=== PATIENT | female | born 1975 | race Caucasian/White ===

== ENCOUNTER → 2019-02-13 11:29 | Outpatient (CLI) | payer OTHER, SELFPAY ==
--- NOTE | 2019-02-13 | DI.MG.S_ITS ---
BILATERAL DIGITAL SCREENING MAMMOGRAM 3D/2D WITH CAD: 02/13/2019 CLINICAL: Routine screening. Family history of breast cancer. Baseline exam. No prior exams were available for comparison. The tissue of both breasts is heterogeneously dense. This may lower the sensitivity of mammography. Current study was also evaluated with a Computer Aided Detection (CAD) system. There is an oval equal density focal asymmetry with an indistinct and circumscribed margin in the right breast at 7 o'clock middle depth. There also is an oval equal density mass with an indistinct and circumscribed margin in the right breast at 11 o'clock posterior depth. No other significant masses, calcifications, or other findings are seen in either breast. IMPRESSION: INCOMPLETE: NEEDS ADDITIONAL IMAGING EVALUATION The oval equal density focal asymmetry in the right breast at 7 o'clock middle depth is indeterminate. Mediolateral and spot compression views as well as additional views with possible ultrasound are recommended. The oval equal density mass in the right breast at 11 o'clock posterior depth likely represents a lymph node and is indeterminate. Mediolateral and spot compression views as well as additional views with possible ultrasound are recommended. This exam was interpreted at Station ID: [id number]. NOTE: For mammograms, a report in lay terms will be sent to the patient. Approximately 15% of breast malignancies will not be visualized mammographically. In the management of a palpable breast mass, a negative mammogram must not discourage biopsy of a clinically suspicious lesion. Electronically Signed By: Ab jason/vinny:02/13/2019 14:03:19 letter sent: Additional Imaging Needed ACR BI-RADS Category 0: Incomplete 3340F
== END ==
PROVIDERS: Family Provider Physician Assistant; PCP Physician Assistant; Visit Provider Physician Assistant
DX: Z12.31 Encounter for screening mammogram for malignant neoplasm of breast (principal); Z80.3 Family history of malignant neoplasm of breast
CPT/HCPCS: 77063; 77067

== ENCOUNTER → 2019-02-20 09:27 | Outpatient (CLI) | payer OTHER, SELFPAY ==
--- NOTE | 2019-02-20 | DI.MRI.S_ITS ---
PROCEDURE: MR CERVICAL SPINE WO/W CON INDICATIONS: Cervical spina bifida with hydrocephalus TECHNIQUE: Noncontrast sagittal T1 spin echo and T2 fast spin echo, sagittal STIR, foraminal oblique sagittal T2 fast spin echo, axial gradient echo or T2 fast spin echo through the cervical spine. After the administration of contrast, axial and sagittal T1 spin echo with fat saturation through the cervical spine. COMPARISON: Outside Facility, [facility], MRI T-SPINE W/O CONTRAST, 04/04/2017, 9:15. Outside Facility, [facility], MRI C-SPINE W/O CONTRAST, 03/14/2017, 7:38. (Images only, no reports) FINDINGS: Image quality: Excellent. Alignment and curvature: There is reversal of the normal cervical lordosis, with the apex at the C5-C6 level. Marrow: Marrow is normal in overall signal, without suspicious enhancement. Spinal cord: There is again seen a syrinx involving the lower cervical spine, centered at C6-C7. This is not significantly changed compared to the outside CT examination. Prominence of the cervical cord can be seen elsewhere. There is partial visualization of an additional syrinx seen within the upper thoracic spine, which is also believed to be stable. No abnormal intramedullary enhancement. Visualized spinal cord has normal size. The cerebellar tonsils are low-lying, seen 6 cm below the level of the foramen magnum. They are peg-shaped. Paraspinous soft tissues: No paravertebral masses or suspicious enhancement. C2-3: Normal appearance. C3-4: Normal appearance. C4-5: Normal appearance. C5-6: Mild to moderate loss of disc height is seen. Moderate disc osteophyte complex is seen, which is eccentric to the right. There is moderate right-sided and mild left-sided facet hypertrophy seen. There is moderate right-sided and no left-sided nerve narrowing seen. No significant central canal narrowing is seen. These imaging findings have progressed compared to the prior study. C6-7: Mild loss of disc height is seen. Loss of disc signal is seen. Mild to moderate disc osteophyte complex is seen. There is a disc osteophyte protrusion seen on the right. There is moderate to severe right-sided and mild to moderate left-sided neural foraminal narrowing seen. No central canal narrowing is seen. These degenerative changes are more prominent on the prior outside MRI. C7-T1: No focal abnormality is seen. IMPRESSION: Stable syrinx is seen both within the lower cervical spine and within the visualized upper thoracic spine. No abnormal enhancement is seen. Chiari 1 malformation. Lower cervical spine degenerative changes are seen, which have progressed compared prior MRI. Reversal of the normal cervical lordosis is seen. This is commonly observed in patients with muscular spasm. Dictated by: Johnny Oconnor M.D. on 02/20/2019 at 11:18 Approved by: Johnny Oconnor M.D. on 02/20/2019 at 11:37
== END ==
PROVIDERS: PCP Internal Medicine; Visit Provider Nurse Practitioner Family
DX: Q05.0 Cervical spina bifida with hydrocephalus (principal); G93.5 Compression of brain; M47.812 Spondylosis without myelopathy or radiculopathy, cervical region
CPT/HCPCS: 72156; A9579

== ENCOUNTER → 2019-03-06 14:10 | Outpatient (CLI) | payer OTHER, SELFPAY ==
--- NOTE | 2019-03-06 | DI.US.S_ITS ---
ULTRASOUND OF RIGHT BREAST: 03/06/2019 CLINICAL: Additional evaluation requested from prior study. Comparison is made to exams dated: 03/06/2019 mammogram and 02/13/2019 mammogram - [facility]. Color flow ultrasound of the right breast was performed on the areas of interest. Gonzalez scale images of the real-time examination were reviewed. There is a normal appearing lymph node in the right breast at 11 o'clock middle depth. This normal lymph node displays fatty hilum. This correlates with mammography findings. There also is a normal appearing lymph node in the right breast at 7 o'clock middle depth. This normal lymph node displays fatty hilum. This correlates with mammography findings. IMPRESSION: BENIGN There is no sonographic evidence of malignancy. The normal lymph node in the right breast at 11 o'clock middle depth is benign. The normal lymph node in the right breast at 7 o'clock middle depth is benign. A 1 year screening mammogram is recommended. This exam was interpreted at Station ID: [id number]. Electronically Signed By: Danelle carpenter/:03/06/2019 15:33:43 letter sent: Normal Exam Ultrasound BI-RADS: 2 Benign
--- NOTE | 2019-03-06 | DI.MG.S_ITS ---
UNILATERAL RIGHT DIGITAL DIAGNOSTIC MAMMOGRAM 3D/2D WITH ADDITIONAL VIEWS: 03/06/2019 CLINICAL: Additional evaluation requested from prior study. Comparison is made to exam dated: 02/13/2019 [facility]. The tissue of right breast is heterogeneously dense. This may lower the sensitivity of mammography. There is an oval equal density focal asymmetry with an indistinct and circumscribed margin in the right breast at 7 o'clock middle depth. This is seen in additional views. There also is an oval equal density mass with an indistinct and circumscribed margin in the right breast at 11 o'clock posterior depth. This is seen in additional views. No other significant masses or calcifications are seen in the breast. IMPRESSION: INCOMPLETE: NEEDS ADDITIONAL IMAGING EVALUATION The oval equal density focal asymmetry in the right breast at 7 o'clock middle depth likely represents a lymph node and is indeterminate. The oval equal density mass in the right breast at 11 o'clock posterior depth likely represents a lymph node and is indeterminate. A targeted ultrasound of the right breast is recommended and will be performed immediately following this exam. This exam was interpreted at Station ID: [id number]. NOTE: For mammograms, a report in lay terms will be sent to the patient. Approximately 15% of breast malignancies will not be visualized mammographically. In the management of a palpable breast mass, a negative mammogram must not discourage biopsy of a clinically suspicious lesion. Electronically Signed By: Danelle carpenter/:03/06/2019 15:05:37 ACR BI-RADS Category 0: Incomplete 3340F
== END ==
PROVIDERS: PCP Internal Medicine; Visit Provider Nurse Practitioner Family
DX: R92.8 Other abnormal and inconclusive findings on diagnostic imaging of breast (principal); N64.89 Other specified disorders of breast
CPT/HCPCS: 76642; 77065; G0279

== ENCOUNTER 2019-07-15 13:55 | Emergency (ER) | payer OTHER, SELFPAY ==
[2019-07-15 14:06] VITALS: BP 107/56; PULSE 77; RESP 15; TEMP 37.1; O2SAT 100
--- NOTE | 2019-07-15 14:27 | ED_ITS ---
HPI - Back Pain/Injury General Chief Complaint: Back Pain/Injury Stated Complaint: Really bad back pain Time Seen by Provider: 07/15/19 14:15 Source: patient Mode of arrival: Ambulatory Limitations: no limitations History of Present Illness HPI Narrative: 43-year-old female here for evaluation of right upper back pain and tingling down her right arm. Patient states she was seen yesterday by her primary doctor. Had a Toradol shot. Was sent home with Toradol and Flexeril. States these medications are not improving and of her symptoms. She states they started approximately 1 week ago. Prior to that she was moving around some heavy furniture. She has never had anything like this in the past. Given emergency department today because her symptoms have continued. Related Data Previous Rx's Medication Instructions Recorded diazepam [Valium] 5 mg PO BID PRN #7 tab 07/15/19 hydrocodone-acetaminophen [[place]] 1 tab PO Q4-6H PRN #7 tab 07/15/19 Allergies Allergy/AdvReac Type Severity Reaction Status Date / Time Sulfa (Sulfonamide Allergy Severe RASH WITH Verified 07/15/19 14:31 Antibiotics) KIDNEY AND BACK PAIN Review of Systems Constitutional Constitutional: Denies fever(s) and Denies headache(s) ENT Ears, Nose, Mouth, and Throat: Denies headache(s) Cardiovascular Cardiovascular: Denies chest pain and Denies dyspnea Respiratory Respiratory: Denies dyspnea Musculoskeletal Musculoskeletal: Reports tingling (Right arm) Comments: Right upper back pain Integumentary/Breasts Skin/Breast: Denies lesions and Denies rash Neurologic Neurologic: Denies headache(s) and Reports tingling (Right arm) Hematologic/Lymphatic Hematologic/Lymphatic: Denies easy bleeding and Denies easy bruising Patient History Medical History Healthy adult (Acute) Social History Smoking Status: Never smoker Smoking Status: Never smoker Exam Initial Vital Signs Initial Vital Signs: Vital Signs Temperature 98.7 F 07/15/19 14:06 Pulse Rate 77 07/15/19 14:06 Respiratory Rate 15 07/15/19 14:06 Blood Pressure 107/56 L 07/15/19 14:06 Pulse Oximetry 100 07/15/19 14:06 Const General: cooperative Limitations: mental status not altered [facility] Head: normal to inspection and normocephalic Resp Effort & Inspection: normal respiratory effort Cardio Rate: regular rate Pulses: radial pulses present on the right Skin Lesions: no lesions Rashes: no rashes Neuro General: patient alert and patient awake Sensory Exam: no sensory deficits noted Extrem Other: Patient with tenderness to palpation along the rhomboids posteriorly on the right. Also has slight tenderness to palpation along the superior aspect of the right shoulder. Right deltoid unremarkable. Patient has full range of motion the right shoulder however is somewhat limited by pain when she shrugs her shoulders. Course Orders Ordered: Discontinued Medications Lidocaine HCl (Xylocaine 1% (Pf)) 2 ml INJ NOW ONE Stop: 07/15/19 14:29 Last Admin: 07/15/19 14:37 Dose: 2 ml Documented by: CONNOR Vital Signs Vital signs: Vital Signs - 8 hr 07/15/19 14:06 Temperature 98.7 F Pulse Rate 77 Respiratory Rate 15 Blood Pressure [Right Arm] 107/56 L Pulse Oximetry 100 MDM - Back Pain/Injury MDM Narrative Medical decision making narrative: I do suspect this is musculoskeletal etiology. Offered another Toradol shot but the patient declined. She did seem to have a focal point of tenderness on the right rhomboid. I did perform a trigger point injection with 1 cc of 1% lidocaine without epinephrine. This was after discussion the risks and benefits this. I do not feel that we need to perform any radiologic studies. We will change her Flexeril to Valium and will send home with [place]. She was informed these medicines can make her drowsy. We discussed return precautions and follow-up instructions. She expressed understanding and agreement. Discharge Plan Departure Patient Disposition: Home Clinical Impression: Muscle spasm Acute thoracic back pain Qualifiers: Back pain laterality: right Qualified Code(s): M54.6 - Pain in thoracic spine Discharge Date/Time: 07/15/19 15:18 Instructions: DI for Muscle Spasm Activity Restrictions/Additional Instructions: I do think that your symptoms today are related to a muscle spasm on the right side. I would recommend that you continue the Toradol/ketorolac. Recommend that you stop the Flexeril/cyclobenzaprine. You can start taking the Valium and the pain medication you were given today. Remember these medications can make you drowsy. Contact your primary provider for follow-up. Prescriptions: New diazepam [Valium] 5 mg tablet 5 mg PO BID PRN (Reason: muscle spasm) Qty: 7 RF: 0 hydrocodone-acetaminophen [[place]aco] 5-325 mg tablet 1 tab PO Q4-6H PRN (Reason: pain) Qty: 7 RF: 0 Referrals: Edith Smiley ARNP [Primary Care Provider] -
[2019-07-15] MEDS: LIDOCAINE 1% (PF) 2 ML INJ (14:37)
== END 2019-07-15 15:18 | disposition home or self-care (01) ==
PROVIDERS: Emergency Provider Emergency Medicine; PCP Internal Medicine
DX: M54.6 Pain in thoracic spine (principal); M62.830 Muscle spasm of back
CPT/HCPCS: 99283

== ENCOUNTER 2020-02-19 09:36 | Emergency (ER) | payer OTHER, SELFPAY ==
[2020-02-19 09:40] VITALS: BP 105/84; PULSE 85; RESP 17; TEMP 36.4; O2SAT 100; BMI 23.1
[2020-02-19] MEDS: TET,DIPH,PERTUSS(ACELL),VAC/PF 0.5 ML SYRINGE IM (09:50)
--- NOTE | 2020-02-19 10:02 | ED.WOUNDLAC ---
HPI - Wound/Laceration <Anamika Morales PA-C - Last Filed: 02/19/20 12:43> General Chief Complaint: Wound/Laceration Stated Complaint: puncture wound in left hand Time Seen by Provider: 02/19/20 10:01 Source: patient Mode of arrival: Ambulatory Limitations: no limitations History of Present Illness HPI narrative: Is a previously healthy 44-year-old woman who presents complaining of a puncture wound to her left hand near the base of her thumb obtained accidentally. She was attempting to loosen clumped gummy vitamins in the bottom a vitamin jar using a steak knife to stab them apart she accidentally missed and stabbed into her hand on the top of her hand next to her thumb. She said it bled quite a bit initially. She reports she is not up-to-date on her Tdap, denies any other injury. She denies numbness and tingling to the hand or fingers she does have reduced range of motion 2nd to pain. Onset (ago): minute(s) (45) Extremity Location: Left: hand Place: home Patient tetanus UTD: No Context: accidental Associated symptoms: pain and other (Difficulty moving thumb /fingers due to pain) Treatments prior to arrival: other (none) Related Data Previous Rx's Medication Instructions Recorded diazepam [Valium] 5 mg PO BID PRN #7 tab 07/15/19 hydrocodone-acetaminophen [[place]] 1 tab PO Q4-6H PRN #7 tab 07/15/19 Allergies Allergy/AdvReac Type Severity Reaction Status Date / Time Sulfa (Sulfonamide Allergy Severe RASH WITH Verified 02/19/20 09:44 Antibiotics) KIDNEY AND BACK PAIN Review of Systems <Anamika Morales PA-C - Last Filed: 02/19/20 12:43> Review of Systems Narrative: GENERAL: Denies chills, fatigue, malaise, fever, sweats. HEENT: Denies sinus pain, ear pain, sore throat, difficulty swallowing, dizziness. RESPIRATORY: Denies dyspnea, cough, wheezing, hemoptysis, sputum. CARDIOVASCULAR: Denies chest pain, palpitations, orthopnea, edema, GASTROINTESTINAL: Denies nausea, vomiting, abdominal pain, diarrhea, constipation, melena. : Denies dysuria, frequency, incontinence, hematuria, urinary retention. MUSCULOSKELETAL: Endorses pain and reduced range of motion of her left thumb and 2nd and 3rd fingers. Denies weakness, joint pain, or bony pain SKIN: Denies rash, skin lesions, or other NEUROLOGIC: Denies weakness, headache, numbness, change in speech, confusion, seizures, incoordination. PSYCHIATRIC: No concerning psychosocial issues. 12 point review of systems is negative except for those stated above Patient History <Anamika Morales PA-C - Last Filed: 02/19/20 12:43> Medical History (Updated 02/19/20 @ 11:01 by Anamika Morales PA-C) Healthy adult Social History Smoking Status: Never smoker Smoking Status: Never smoker alcohol intake frequency: holidays/special occasions only Substance Use Type: does not use Exam <Anamika Morales PA-C - Last Filed: 02/19/20 12:43> Narrative Exam Narrative: GENERAL: 44 year old patient appears stated age. Well-nourished, well-developed patient, in mild distress. HEAD: Atraumatic. Normocephalic. EYES: Pupils equal round and reactive. Extraocular motions intact. No scleral icterus. No injection or drainage. ENT: Nose without bleeding, purulent drainage. Airway patent. NECK: Trachea midline. CARDIOVASCULAR: Regular rate and rhythm without murmurs, gallops, or rubs. RESPIRATORY: Clear to auscultation. Breath sounds equal bilaterally. No wheezes, rales, or rhonchi. GASTROINTESTINAL: Abdomen soft, non-tender, nondistended. EXTREMITIES: There is an approximately 1 centimetre open linear puncture/laceration wound located dorsally in the soft tissue at the medial base of the left first digit, bleeding is controlled. There is reduced range of motion 2nd to pain the thumb and fingers of the left hand. There is no appreciable swelling. She is able to perform finger to thumb opposition, give a thumbs up, flex and extend all fingers slowly. No edema or joint tenderness. ROM and strength at the wrist intact. BACK: Nontender without deformity or crepitance. No flank tenderness. NEURO: AOx3. SKIN: No rash or erythema of visible areas Initial Vital Signs Initial Vital Signs: Vital Signs Temperature 97.5 F L 02/19/20 09:40 Pulse Rate 85 02/19/20 09:40 Respiratory Rate 17 02/19/20 09:40 Blood Pressure 105/84 02/19/20 09:40 Pulse Oximetry 100 02/19/20 09:40 <Bekah Armas DO - Last Filed: 02/19/20 19:24> Initial Vital Signs Initial Vital Signs: Vital Signs Temperature 97.5 F L 02/19/20 09:40 Pulse Rate 85 02/19/20 09:40 Respiratory Rate 17 02/19/20 09:40 Blood Pressure 105/84 02/19/20 09:40 Pulse Oximetry 100 02/19/20 09:40 Procedures <FÉLIX Lopez Last Filed: 02/19/20 12:43> Laceration Repair Laceration 1: Site: hand Side (If applicable): left Size (cm): 1 Description: linear Depth: simple, single layer Local Anesthetic: lidocaine 1% and with bicarb Amount of anesthesia used (mL): 5 Pre-repair: wound explored and irrigated extensively (500ml sterile water) Skin layer closed with: nylon Size (cm): 5-0 Number of sutures: 2 Technique: simple, interrupted Scores <FÉLIX Lopez Last Filed: 02/19/20 12:43> GCS Bryan coma scale eye opening: Spontaneous Bryan coma scale verbal response: Orientated Leeann coma scale motor response: Obey commands Leeann coma scale total score: 15 Course <FÉLIX Lopez Last Filed: 02/19/20 12:43> Orders Ordered: Discontinued Medications Acetaminophen (Acetaminophen 325 Mg Tablet) 975 mg PO NOW ONE Stop: 02/19/20 10:15 Last Admin: 02/19/20 10:23 Dose: 975 mg Documented by: WILLIE Bacitracin (Bacitracin Oint 0.9 Gm Pckt) 1 applic TOP NOW ONE Stop: 02/19/20 11:54 Last Admin: 02/19/20 12:30 Dose: 1 applic Documented by: JAILENE Diphtheria/Tetanus/Acell Pertussis (Tet,Diph,Pertuss(Acell),Vac/Pf 0.5 Ml Syringe) 0.5 ml IM .ONCE ONE Stop: 02/19/20 09:49 Last Admin: 02/19/20 09:50 Dose: 0.5 ml Documented by: WILLIE Ibuprofen (Ibuprofen 400 Mg Tablet) 800 mg PO NOW ONE Stop: 02/19/20 10:15 Last Admin: 02/19/20 10:23 Dose: 800 mg Documented by: WILLIE Lidocaine/Sodium Bicarbonate (Lido 1%/Sod Bicarb 8.4% (10ml) 10 Ml Syringe) 10 ml INJ NOW ONE Stop: 02/19/20 10:14 Last Admin: 02/19/20 10:23 Dose: 10 ml Documented by: WILLIE Vital Signs Vital signs: Vital Signs - 8 hr 02/19/20 12:41 Blood Pressure 109/85 <Bekah Armas DO - Last Filed: 02/19/20 19:24> Orders Ordered: Discontinued Medications Acetaminophen (Acetaminophen 325 Mg Tablet) 975 mg PO NOW ONE Stop: 02/19/20 10:15 Last Admin: 02/19/20 10:23 Dose: 975 mg Documented by: WILLIE Bacitracin (Bacitracin Oint 0.9 Gm Pckt) 1 applic TOP NOW ONE Stop: 02/19/20 11:54 Last Admin: 02/19/20 12:30 Dose: 1 applic Documented by: JAILENE Diphtheria/Tetanus/Acell Pertussis (Tet,Diph,Pertuss(Acell),Vac/Pf 0.5 Ml Syringe) 0.5 ml IM .ONCE ONE Stop: 02/19/20 09:49 Last Admin: 02/19/20 09:50 Dose: 0.5 ml Documented by: WILLIE Ibuprofen (Ibuprofen 400 Mg Tablet) 800 mg PO NOW ONE Stop: 02/19/20 10:15 Last Admin: 02/19/20 10:23 Dose: 800 mg Documented by: WILLIE Lidocaine/Sodium Bicarbonate (Lido 1%/Sod Bicarb 8.4% (10ml) 10 Ml Syringe) 10 ml INJ NOW ONE Stop: 02/19/20 10:14 Last Admin: 02/19/20 10:23 Dose: 10 ml Documented by: WILLIE Vital Signs Vital signs: Vital Signs - 8 hr 02/19/20 12:41 Blood Pressure 109/85 MDM - Wound/Laceration <Anamika Morales PA-C - Last Filed: 02/19/20 12:43> Differential Diagnosis Differential diagnosis: Likely laceration and other (puncture, adductor policis damage, nerve damag) Medical Records Attestation: I reviewed the patient's medical records. Imaging Data Extremity x-ray #1: Attestation: I personally reviewed and interpreted this imaging study as follows: Radiologist's Impression: [address] [id number] ReportSigned Patient: Yazmin Contreras AMR#: [id number]: 1975Acct:[id number]/Sex: 44 / FDate of Service: 02/19/20Loc: EDAccession Number: [id number] Procedure: XR hand LT 2V Ordering Provider: Anamika Morales P.A-C PROCEDURE: XR HAND LT 2V INDICATIONS: puncture wound base of thumb TECHNIQUE: Single view of the hand and additional view of the left 1st digit acquired. COMPARISON: None. FINDINGS: Bones: No fractures or dislocations. Carpal bones are normally aligned. No suspicious bony lesions. Soft tissues: No radiopaque foreign bodies. Small lucent foci projecting over the thenar soft tissues is compatible with soft tissue gas. IMPRESSION: 1. No fractures or radiopaque foreign bodies. Dictated by: Ab Jones M.D. on 02/19/2020 at 11:22 Approved by: Ab Jones M.D. on 02/19/2020 at 11:25 [facility] Narrative Medical decision making narrative: Well-appearing 44-year-old who presents complaining of a puncture wound to the base of her left thumb. Tdap booster in the emergency department today. Imaging is obtained for further evaluation, based on history and exam low suspicion for damage to bone however patient does have significant pain with range of motion suspect muscle damage to the abductor pollicis muscles. She is right-handed. She does have normal range of motion with with pain, reduced strength 2nd to pain, capillary refill is good, neurovascularly intact. Decision is made to close the wound as I have low suspicion for significant contamination based on mechanism of injury she also was able to tolerate good washout with 500 mL pressure irrigation. Antibiotics are not prescribed, patient declines stronger pain medicine and will use Tylenol and ibuprofen. She is provided with pain medicine, local anesthesia, washout as above and procedures and repair. No significant bleeding. Patient is advised regarding emergency return precautions and follow-up plan. All questions answered. Discharge Plan Departure Patient Disposition: Home Clinical Impression: Puncture wound of hand, left Qualifiers: Encounter type: initial encounter Foreign body presence: without foreign body Qualified Code(s): S61.432A - Puncture wound without foreign body of left hand, initial encounter Instructions: DI for Puncture Wound Activity Restrictions/Additional Instructions: There is no evidence of an emergent or life threatening illness at this time, but follow up with your doctor in 1-2 days is recommended nonetheless to continue to rule out serious underlying causes of your symptoms. Please call the office for an appointment. Please return to the Emergency Department for any worsening or persistent symptoms. Please take medications as directed. I recommend you follow-up with your primary care provider however I have also included follow-up information for orthopedics who would like to be seen by Orthopedics given the nature of your injury. I do not suspect tendon damage. We did place you in a wrist brace for protection and to help with pain as her pain is definitely increased with movement. Please monitor for signs of infection including redness, heat, increased swelling, drainage from the wound. Prescriptions: No Action diazepam [Valium] 5 mg tablet 5 mg PO BID PRN (Reason: muscle spasm) Qty: 7 RF: 0 hydrocodone-acetaminophen [[place]] 5-325 mg tablet 1 tab PO Q4-6H PRN (Reason: pain) Qty: 7 RF: 0 Referrals: Dale Martinez MD [Physician] - (Puncture wound Left hand dorsum, medial to proximal 1st digit ROM intact w/pain possible adductor policis damage) Edith Smiley ARNP [Primary Care Provider] - <Bekah Armas DO - Last Filed: 02/19/20 19:24> Cosign ED Attending Brunoature Attestation: I was immediately available in the department for consultation. Documentation has been reviewed. I agree with assessment and plan.
--- NOTE | 2020-02-19 10:07 | DI.RAD.S_ITS ---
PROCEDURE: XR HAND LT 2V INDICATIONS: puncture wound base of thumb TECHNIQUE: Single view of the hand and additional view of the left 1st digit acquired. COMPARISON: None. FINDINGS: Bones: No fractures or dislocations. Carpal bones are normally aligned. No suspicious bony lesions. Soft tissues: No radiopaque foreign bodies. Small lucent foci projecting over the thenar soft tissues is compatible with soft tissue gas. IMPRESSION: 1. No fractures or radiopaque foreign bodies. Dictated by: Ab Jones M.D. on 02/19/2020 at 11:22 Approved by: Ab Jones M.D. on 02/19/2020 at 11:25
[2020-02-19] MEDS: LIDO 1%/SOD BICARB 8.4% (10ML) 10 ML SYRINGE INJ (10:23)
[2020-02-19] MEDS: ACETAMINOPHEN 325 MG TABLET 975 MG PO (10:23)
[2020-02-19] MEDS: IBUPROFEN 400 MG TABLET 800 MG PO (10:23)
[2020-02-19] MEDS: BACITRACIN OINT 0.9 GM PCKT 1 APPLIC TOP (12:30)
[2020-02-19 12:41] VITALS: BP 109/85
== END 2020-02-19 12:42 | disposition home or self-care (01) ==
PROVIDERS: Emergency Provider Student in an Organized Health Care Education/Training Program; PCP Internal Medicine
DX: S61.432A Puncture wound without foreign body of left hand, initial encounter (principal); W26.0XXA Contact with knife, initial encounter; Z23 Encounter for immunization
CPT/HCPCS: 12001; 73120; 90471; 99283; 90715

== ENCOUNTER → 2020-03-22 17:26 | Outpatient (CLI) | payer OTHER, SELFPAY ==
--- NOTE | 2020-03-22 | DI.MG.S_ITS ---
BILATERAL DIGITAL SCREENING MAMMOGRAM 3D/2D WITH CAD: 03/22/2020 CLINICAL: Routine screening. Family history of breast cancer. Comparison is made to exams dated: 03/06/2019 mammogram and 02/13/2019 mammogram - [facility]. The tissue of both breasts is heterogeneously dense. This may lower the sensitivity of mammography. Current study was also evaluated with a Computer Aided Detection (CAD) system. There is a stable benign intramammary node in the right breast. No significant masses, calcifications, or other findings are seen in either breast. There has been no significant interval change. IMPRESSION: BENIGN There is no mammographic evidence of malignancy. A 1 year screening mammogram is recommended. This exam was interpreted at Station ID: [id number]. NOTE: For mammograms, a report in lay terms will be sent to the patient. Approximately 15% of breast malignancies will not be visualized mammographically. In the management of a palpable breast mass, a negative mammogram must not discourage biopsy of a clinically suspicious lesion. Electronically Signed By: Telly Kaplan acr/:03/23/2020 08:25:56 letter sent: Normal Exam ACR BI-RADS Category 2: Benign Finding(s) 3342F
== END ==
PROVIDERS: PCP Internal Medicine; Referring Provider Internal Medicine; Visit Provider Internal Medicine
DX: Z12.31 Encounter for screening mammogram for malignant neoplasm of breast (principal); Z80.3 Family history of malignant neoplasm of breast
CPT/HCPCS: 77063; 77067

== ENCOUNTER → 2020-07-13 08:06 | Outpatient (CLI) | payer OTHER, SELFPAY ==
--- NOTE | 2020-07-13 | DI.US.S_ITS ---
PROCEDURE: US PELVIC COMPLETE INDICATIONS: DUB; CHECK IUD PLACEMENT TECHNIQUE: Real-time scanning was performed of the pelvic organs, with image documentation. Additional endovaginal scanning was necessary due to incomplete visualization of the adnexal and endometrial structures by transabdominal scanning. COMPARISON: None. FINDINGS: Uterus: Uterus is normal in size at 4.6 x 6.6 x 10.6 cm. The endometrium measures 5.6 mm in combined thickness. Centrally positioned IUD is noted, and there is a linear hyperechoic structure at the posterior myometrium just beyond the IUD margin centrally position. This could represent evidence of a penetration of a portion of the IUD into the myometrium but not clearly present extending into the peritoneal space. Ovaries: Normal size and morphology of the ovaries bilaterally. Other: No pathologic free abdominal or pelvic fluid. IMPRESSION: A thin linear hyperechoic structure extends from the IUD posteriorly to the serosal surface of the posterior myometrium. It is unclear whether this could represent currently a manifestation of penetration of a portion of the IUD into the myometrium, versus sequela of resolved penetration. Repeat pelvic ultrasound in 6-8 weeks may be warranted, versus proceeding to CT scanning for evaluation of the components of the IUD in relationship to the myometrium versus endometrium. Dictated by: Jorge Wood M.D. on 07/13/2020 at 13:53 Approved by: Jorge Wood M.D. on 07/13/2020 at 13:58
== END ==
PROVIDERS: PCP Internal Medicine; Referring Provider Internal Medicine; Visit Provider Internal Medicine
DX: N92.6 Irregular menstruation, unspecified (principal); R10.31 Right lower quadrant pain
CPT/HCPCS: 76830; 76856

== ENCOUNTER → 2020-07-23 09:28 | Outpatient (CLI) | payer OTHER, SELFPAY ==
--- NOTE | 2020-07-23 | DI.CT.S_ITS ---
PROCEDURE: CT ABDOMEN PELVIS W CON INDICATIONS: Right lower quadrant pain TECHNIQUE: After the administration of oral and intravenous contrast, axial sections were acquired from the lung bases to the pubic symphysis. Coronal and sagittal reformats were performed. For radiation dose reduction, the following was used: automated exposure control, adjustment of mA and/or kV according to patient size. COMPARISON:[facility], , PELVIC COMPLETE, 07/13/2020, 8:28. FINDINGS: Image quality: Excellent. Lung bases: Unremarkable. Heart: No significant findings. ABDOMEN: Liver: Unremarkable. Gallbladder: Unremarkable. Biliary ducts: Unremarkable. Pancreas: Unremarkable. Spleen: Unremarkable. Adrenal Glands: Unremarkable. Kidneys and Ureters: Unremarkable. Stomach and Bowel: Stomach, small bowel loops, and colon are unremarkable. Peritoneum: No abnormal intraperitoneal fluid. No free air. Ventral Wall: No hernia. Abdominal Nodes: No retroperitoneal or mesenteric adenopathy by size criteria. Vessels: Aorta and inferior vena cava are normal in size. PELVIS: Pelvic Organs: The uterus is anteverted and there is a centrally positioned IUD without evidence of IUD margins penetrating into the myometrium.. Bladder: Unremarkable. Pelvic Nodes: No enlarged lymph nodes. Miscellaneous: No inguinal hernias are seen. No abnormal free fluid seen within the pelvis. Involuting small right ovarian cyst. Bones: Unremarkable. IMPRESSION: Normal positioning of the IUD without evidence of IUD penetration into the myometrium. Strongly anteverted uterus. Involuting right ovarian cyst, small in size. No evidence of free fluid throughout the peritoneal space. No acute disease. Dictated by: Jorge Wood M.D. on 07/23/2020 at 12:12 Approved by: Jorge Wood M.D. on 07/23/2020 at 12:16
== END ==
PROVIDERS: PCP Internal Medicine; Referring Provider Internal Medicine; Visit Provider Internal Medicine
DX: R10.31 Right lower quadrant pain (principal); N85.4 Malposition of uterus; Z97.5 Presence of (intrauterine) contraceptive device
CPT/HCPCS: 74177; Q9967

== ENCOUNTER → 2023-09-01 11:21 | Outpatient (CLI) | payer OTHER, SELFPAY ==
--- NOTE | 2023-09-01 | DI.MG.S_ITS ---
BILATERAL DIGITAL SCREENING MAMMOGRAM 3D/2D WITH CAD: 09/01/2023 CLINICAL: Routine screening. Family history of breast cancer. Comparison is made to exams dated: 03/22/2020 mammogram, 02/13/2019 mammogram, and 03/06/2019 mammogram - [facility]. Both breasts are heterogeneously dense, which may obscure small masses (category c / 51-75% glandular tissue). Current study was also evaluated with a Computer Aided Detection (CAD) system. There is a stable benign intramammary node in the right breast. There also is a biopsy clip in the left breast. No significant masses, calcifications, or other findings are seen in either breast. There has been no significant interval change. IMPRESSION: BENIGN There is no mammographic evidence of malignancy. A 1 year screening mammogram is recommended. Based on the Tyrer Cuzick model (a risk assessment model) the patient's lifetime risk is 19.1% and her 10 year risk is 3.7%. According to the ACR, ACS, and NCCN guidelines, an annual breast MRI exam along with mammogram is recommended if the patient's lifetime risk is 20% or greater. This exam was interpreted at Station ID: [id number]. NOTE: For mammograms, a report in lay terms will be sent to the patient. Approximately 15% of breast malignancies will not be visualized mammographically. In the management of a palpable breast mass, a negative mammogram must not discourage biopsy of a clinically suspicious lesion. Electronically Signed By: Augustin kirk/vinny:09/03/2023 08:51:28 letter sent: Normal Exam ACR BI-RADS Category 2: Benign Finding(s) 3342F
== END ==
PROVIDERS: PCP Registered Nurse; Referring Provider Registered Nurse; Visit Provider Registered Nurse
DX: Z12.31 Encounter for screening mammogram for malignant neoplasm of breast (principal); Z80.3 Family history of malignant neoplasm of breast; R92.333 Mammographic heterogeneous density, bilateral breasts
CPT/HCPCS: 77063; 77067

== ENCOUNTER → 2024-03-11 17:19 | Outpatient (CLI) | payer OTHER, SELFPAY ==
--- NOTE | 2024-03-11 17:20 | DI.MRI.S_ITS ---
PROCEDURE: MR CERVICAL SPINE WO CON INDICATIONS: CHIARI MALFORMATION - CERVICAL TECHNIQUE: Noncontrast sagittal T1 spin echo and T2 fast spin echo, sagittal STIR, foraminal oblique sagittal T2 fast spin echo, and axial gradient echo or T2 fast spin echo through the cervical spine. COMPARISON: [facility], MRI T-SPINE W/WO CONTRAST, 04/04/2017, 9:15. [facility], MR, MR CERVICAL SPINE WO/W CON, 02/20/2019, 9:34. FINDINGS: Image quality: Excellent. Alignment and Curvature: There is reversal cervical curvature apex at C5, unchanged. Bone Marrow: Marrow demonstrates normal overall signal. Spinal Cord: Visualized spinal cord has normal size. There is persistent focus increased intramedullary signal from C5-6 through T1, unchanged.. Additional focus increased signal is also visualized in the upper thoracic spine appearing unchanged. Cerebellar tonsils are low lying measuring approximately 6-7 mm, unchanged. Paraspinous Soft Tissues: No paravertebral masses. Prevertebral soft tissues are normal in thickness. Multilevel disc bulges, spinal stenosis and foraminal narrowing demonstrate no significant change. IMPRESSION: Stable appearance of low lying tonsils with cervical and partially visualized thoracic syrinx. Dictated by: Lilo Aguirre M.D. on 03/11/2024 at 20:41 Approved by: Lilo Aguirre M.D. on 03/11/2024 at 21:10
== END ==
LOC: MRI 17:19
PROVIDERS: Family Provider Registered Nurse; PCP Family Medicine; Referring Provider Family Medicine; Visit Provider Family Medicine
DX: Q05.5 Cervical spina bifida without hydrocephalus (principal)
CPT/HCPCS: 72141

== ENCOUNTER → 2025-01-06 15:20 | Outpatient (CLI) | payer OTHER, SELFPAY ==
--- NOTE | 2025-01-06 15:21 | DI.US.S_ITS ---
PROCEDURE: US PELVIC COMPLETE INDICATIONS: Pelvic pain; IUD in place; enlarged uterus TECHNIQUE: Real-time scanning was performed of the pelvic organs, with image documentation. Additional endovaginal scanning was necessary due to incomplete visualization of the adnexal and endometrial structures by transabdominal scanning. Doppler and color flow imaging was also performed to evaluate arterial and venous blood flow to the bilateral ovaries. COMPARISON: [facility], US, US PELVIC COMPLETE, 07/13/2020, 8:28. FINDINGS: Uterus: Uterus is anteverted and normal in size at 11.3 x 4.9 x 6.8 cm. The myometrium is heterogeneous. The endometrium measures 6.3 mm combined thickness. There is an intramural fibroid in the mid posterior uterus measuring 2.4 x 2.1 x 2.0 cm. Intrauterine device appears to be in appropriate position. Ovaries: The right ovary measures 1.4 x 2.8 x 1.4 cm, with a calculated ovarian volume of 2.8 cc. The left ovary measures 2.9 x 1.8 x 2.5 cm, with a calculated ovarian volume of 6.8 cc. The ovaries have a normal sonographic appearance. Less than 12 follicles can be seen in each ovary. No adnexal masses are seen. There are 2 simple cyst seen left adnexal region. Doppler and color flow imaging demonstrates normal arterial and venous blood flow to the bilateral ovaries. Other: No pathologic free abdominal or pelvic fluid. IMPRESSION: 1. Intrauterine device appears to be in appropriate position. 2. Intramural fibroid measuring up to 2.4 cm 3. Left adnexal simple cysts. Approved by: Celia Brantley M.D.,Ph.D. on 01/07/2025 at 17:17
== END ==
LOC: US 15:21
PROVIDERS: Family Provider Registered Nurse; PCP Family Medicine; Referring Provider Family Medicine; Visit Provider Family Medicine
DX: D25.1 Intramural leiomyoma of uterus (principal); R10.20 Pelvic and perineal pain unspecified side; N94.89 Other specified conditions associated with female genital organs and menstrual cycle; Z97.5 Presence of (intrauterine) contraceptive device
CPT/HCPCS: 76830; 76856; 93975

== ENCOUNTER → 2025-01-21 08:52 | Outpatient (CLI) | payer OTHER, SELFPAY ==
--- NOTE | 2025-01-21 08:54 | DI.MG.S_ITS ---
MM diagnostic mammo BI: 01/21/2025. BI-RADS: 2 CLINICAL: 49-year old female for bilateral diagnostic mammogram. Tyrer-Cuzick lifetime risk of 19.2%. No personal or first-degree family history of breast cancer. Current reported family history of breast cancer: paternal grandmother. The patient reports nonfocal pain (more than 2 years) in the left breast. The patient had a prior left breast biopsy. PRIOR EXAMS 09/01/2023, 03/22/2020, 03/06/2019, 02/13/2019. MAMMOGRAPHY TECHNIQUE: 2D and 3D (tomosynthesis) digital mammographic views obtained, with additional images as needed for full coverage. Current study was also evaluated with a Computer Aided Detection (CAD) system. DENSITY C. The breasts are heterogeneously dense, which may obscure small masses. MAMMOGRAPHY FINDINGS Right: No suspicious mass, asymmetry, microcalcification, or other abnormality seen. Left: CC only, Inner, Posterior depth: A questioned asymmetry did not persist with additional imaging and is consistent with superimposition of normal breast tissue. There are no suspicious masses, calcifications, or other findings in the breast. Left: Biopsy marker present on the left. IMPRESSION: Right * No evidence of malignancy. Left * No evidence of malignancy with benign findings. RECOMMENDATIONS Left * Diffuse, non-focal symptoms, such as pain or fullness are typically benign. Clinical follow-up is recommended, and further management of these symptoms should be based on the results of clinical evaluation. If diffuse symptoms persist or become more focal in nature, further clinical evaluation should be considered. Bilateral * Annual screening mammography. COMMENTS: Findings and recommendations were conveyed to the patient during today's evaluation. OVERALL ASSESSMENT CATEGORY BI-RADS-2: Benign. The [employer] recommends annual screening mammography beginning at age 40 for women with average risk of breast cancer. ELECTRONICALLY SIGNED: Samia Lemons M.D. on 01/21/2025 at 10:41:26 AM PT Interpreting Station ID: [id number]
== END ==
PROVIDERS: Family Provider Registered Nurse; PCP Family Medicine; Referring Provider Family Medicine; Visit Provider Family Medicine
DX: N64.4 Mastodynia (principal); R92.333 Mammographic heterogeneous density, bilateral breasts; Z80.3 Family history of malignant neoplasm of breast
CPT/HCPCS: 77066; G0279